=== PATIENT | male | born 1955 | race Two or more races ===

== ENCOUNTER 2017-04-28 09:55 | Emergency (ER) | payer OTHER ==
[~2017-04-28] VITALS: Ht 160 cm; Wt 101.2 kg
[2017-04-28] MEDS ORDERED: LISINOPRIL10 MG (10:11)
[2017-04-28] MEDS ORDERED: ISOSORBIDE DINI40 M1 (10:12)
[2017-04-28] MEDS ORDERED: SOTALOL80 MG (10:12)
[2017-04-28] MEDS ORDERED: SYNTHROID100 MCG (10:13)
== END 2017-04-28 12:59 | disposition home or self-care (01) ==
LOC: ER 09:55
DX: L02.512 Cutaneous abscess of left hand (principal)